=== PATIENT | male | born 1990 | race Caucasian/White ===

== ENCOUNTER 2020-09-25 12:11 | Emergency (ER) | payer SELFPAY ==
[2020-09-25 12:23] VITALS: BP 134/93; PULSE 98; RESP 18; TEMP 36.6; O2SAT 99; BMI 24.3
--- NOTE | 2020-09-25 12:31 | HMH.EDUTC ---
[facility] [place] Clinical Impression: Dental abscess, Jaw pain Disposition: Home, Self-Care Condition on Discharge: Good Instructions: Tooth Abscess, DI for Tooth Abscess Additional Instructions: Drink plenty of fluids. Take the ibuprofen that we prescribed for pain. Take the medications as directed. Follow up with your regular doctor. You have to follow up with a dentist. Please call and get an appointment. GO TO THE ER FOR ANY WORSENING SYMPTOMS Prescriptions: Ibuprofen [Ibuprofen 800mg Tablet] 800 mg PO Q8HP PRN #30 tab PRN Reason: Moderate Pain Transmission Status: Received by [facility]00 [id number] clindamycin HCL [Cleocin HCl] 300 mg PO Q8H 10 Days #30 cap Transmission Status: Received by [facility]00 [id number] Referrals: PCP,No [Primary Care Provider] - Forms: Work/School Release Time of Disposition: 12:36 Medical Decision Making - Medical Records Medical records reviewed: No: I reviewed the patient's medical records. - Les Inquiry Pt receiving controlled substance: No Vital Signs: 09/25/20 12:23 09/25/20 13:08 Temperature 97.8 F 98 F Temperature Source Oral Pulse Rate 79 Pulse Rate [Right] 98 H Respiratory Rate 18 16 Blood Pressure 134/86 Blood Pressure [Right Arm] 134/93 H Blood Pressure Mean [Right Arm] 106 Blood Pressure Source [Right Arm] Automatic Cuff Blood Pressure Position [Right Arm] Sitting 02 Sat by Pulse Oximetry 99 [facility] [place] - General Stated complaint: dental pain Time Seen by Provider: 09/25/20 12:31 - History of Present Illness Provider Complaint: He states that he has had dental pain and left sided facial swelling for the past 2 days. He states that he has multiple decayed teeth. He has been unable to see his dentist due to not having dental insurance at this time. - Related Data Previous Rx's Medication Instructions Recorded Ibuprofen [Ibuprofen 800mg 800 mg PO Q8HP PRN #30 tab 09/25/20 Tablet] clindamycin HCL [Cleocin HCl] 300 mg PO Q8H 10 Days #30 cap 09/25/20 Allergies Allergy/AdvReac Type Severity Reaction Status Date / Time No Known Allergies Allergy Verified 08/11/20 15:25 [facility] History - Hepatitis A Screen Attestation statement:: This patient has been screened for Hepatitis A risk factors. I have reviewed the patient's past medical history: Yes ROS Obtained: Yes All systems reviewed & no additional complaints - Constitutional Constitutional: Denies chills, Denies fever(s) - Eyes Eyes: Denies eye discharge - ENT Ears, Nose, Mouth, and Throat: Reports as per HPI - Cardiovascular Cardiovascular: Denies chest pain - Respiratory Respiratory: Denies chest congestion, Reports cough Physical Exam - General General appearance: alert, in no apparent distress - Head Head exam: atraumatic, normocephalic, normal inspection - Eye Eye exam: Present: normal appearance, PERRL, EOMI - ENT ENT exam: Present: mucous membranes moist, normal external ear exam - Expanded ENT Exam TM/Canal exam: Bilateral TM: erythema, bulging Mouth exam: Present: normal external inspection Teeth exam: Present: dental caries, gingival swelling Throat exam: Present: tonsillar erythema. Absent: tonsillomegaly, tonsillar exudate, R peritonsillar mass, L peritonsillar mass - Neck Neck exam: Present: normal inspection, full ROM, trachea midline. Absent: meningismus, lymphadenopathy - Chest Chest inspection: Present: normal inspection, symmetric chest wall rise. Absent: tenderness - Respiratory Respiratory exam: Present: normal lung sounds bilaterally. Absent: respiratory distress - Cardiovascular Cardiovascular exam: Present: regular rate, normal rhythm. Absent: JVD - Abdominal Exam Abdominal exam: Present: soft, normal bowel sounds. Absent: distention, tenderness, guarding - Extremities Exam Extremities exam: Present: normal inspection, full ROM, normal capillary refill. Absent: calf tendernes
[2020-09-25 13:08] VITALS: BP 134/86; PULSE 79; RESP 16; TEMP 36.6
== END 2020-09-25 13:09 | disposition home or self-care (01) ==
PROVIDERS: Emergency Provider Nurse Practitioner Family
DX: K04.7 Periapical abscess without sinus (principal); K02.9 Dental caries, unspecified
CPT/HCPCS: 99202; G0463

== ENCOUNTER 2020-10-28 09:26 | Emergency (ER) | payer SELFPAY ==
[2020-10-28 09:27] VITALS: BP 135/86; PULSE 87; RESP 18; TEMP 36.7; O2SAT 98; BMI 23.6
[2020-10-28 09:59] VITALS: BP 127/76; PULSE 87; RESP 17; TEMP 36.7; O2SAT 99; BMI 26.7
[2020-10-28 10:03] VITALS: BP 127/76; PULSE 87; RESP 17; TEMP 36.8; O2SAT 99
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
== END 2020-10-28 10:44 | disposition home or self-care (01) ==
PROVIDERS: Emergency Provider Nurse Practitioner Family
DX: M25.571 Pain in right ankle and joints of right foot (principal); M25.471 Effusion, right ankle
CPT/HCPCS: 99202; G0463

== ENCOUNTER → 2020-11-03 15:53 | Outpatient (CLI) | payer SELFPAY ==
--- NOTE | 2020-11-03 15:56 | XR_ITS ---
PROCEDURE: XR ANKLE RT MIN 3V CLINICAL INDICATION: right ankle pain COMPARISON: No exams were available for comparison FINDINGS: There are no previous exams available for comparison. There has been prior ORIF of the right ankle with a lateral fibular bone plate. There are 2 screws within the distal tibia the most distal of which extends into the medial aspect of the distal fibula. The most proximal screw within the distal tibia is not flush with the bony cortex with the medial surface of the screw head approximately 1 cm medial to the cortex of the distal tibia. There are no previous studies available to confirm if this screw is withdrawing or if this has been the baseline position. Correlation with old studies needed. The ankle mortise is preserved. No acute fracture is evident. 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 IMPRESSION: Prior ORIF distal tib fib. The most proximal transverse tibial screw appears to be distracting medially by approximately 1 cm. Correlation with old studies suggested for confirmation. The screw head is not flush with the bony cortex approximately 1 cm medial to the bony cortex causing protrusion of the skin medially. Dictated by: Kory Breen MD 11/03/2020 16:37 Kory Breen MD in [place] 11/03/2020 16:37
== END ==
PROVIDERS: Visit Provider Orthopaedic Surgery
DX: M25.571 Pain in right ankle and joints of right foot (principal)
CPT/HCPCS: 73610